=== PATIENT | male | born 1970 | race American Indian/Alaskan Native ===

== ENCOUNTER 2023-12-16 10:09 | Emergency (ER) | payer SELFPAY ==
[~2023-12-16] VITALS: Ht 188 cm; Wt 107.0 kg
[2023-12-16 10:27] VITALS: O2SAT 98
[2023-12-16 11:30] VITALS: BP 126/93; PULSE 70; RESP 16; TEMP 36.83628; O2SAT 99
== END 2023-12-16 11:46 | disposition home or self-care (01) ==
LOC: ER 10:09
DX: Z00.00 Encounter for general adult medical examination without abnormal findings (principal); Z20.1 Contact with and (suspected) exposure to tuberculosis
CPT/HCPCS: 71045; 99283

== ENCOUNTER 2024-07-11 14:03 | Emergency (ER) | payer MEDICAID ==
[~2024-07-11] VITALS: Ht 177.8 cm; Wt 100.0 kg
[2024-07-11 14:09] VITALS: O2SAT 100
[2024-07-11 15:27] LABS: BASOPHILS % 0.3 % (0.0-2.0); CHLORIDE 105 mEq/L (98-107); DIFFERENTIAL COMMENT 0; EOSINOPHILS % 1.5 % (0.0-5.0); HEMATOCRIT. 35.9 % (42.0-52.0); HEMOGLOBIN. 11.7 g/dL (14.0-18.0); LYMPHOCYTES % 16.8 % (20.0-50.0); MEAN CORPUSCULAR HEMOGLOBIN 25.8 pg (28.0-32.0); MEAN CORPUSCULAR HGB CONC 32.4 g/dL (31.0-37.0); MEAN CORPUSCULAR VOLUME 79.6 fL (80.0-94.0); MEAN PLATELET VOLUME 7.6 fl (7.4-10.4); MONOCYTES % 11.5 % (2.0-8.0); NEUTROPHILS % 69.9 % (40.0-76.0); PLATELET 360 x1000/uL (130-400); RED BLOOD CELL COUNT 4.52 mill/uL (4.7-6.1); RED CELL DISTRIBUTION WIDTH 14.1 % (11.6-14.6); SODIUM 141 mEq/L (136-145); WHITE BLOOD COUNT 8.6 x1000/uL (4.5-11.0)
[2024-07-11 15:28] LABS: CALCIUM 9.1 mg/dL (8.7-10.4); CARBON DIOXIDE 28 mEq/L (21-32)
[2024-07-11 15:33] LABS: CREATININE 0.9 mg/dL (0.6-1.3); GLUCOSE 101 mg/dL (70-105); UREA NITROGEN BLOOD 13 mg/dL (9-23)
[2024-07-11 15:41] LABS: ETHANOL BLOOD < 10 mg/dL (<10)
[2024-07-11] MEDS ORDERED: OLANZAPINE 5MG TABLET ODT PO ONE (17:45)
[2024-07-11] MEDS: SULFAMETHOXAZOLE/TRIMETHOPRIM 800/160MG TABLET PO SCH (21:00)
[2024-07-11] MEDS: OLANZAPINE 5MG TABLET ODT PO NR (22:26)
[2024-07-12 01:25] LABS: CLARITY URINE CLEAR (CLEAR); COLOR URINE YELLOW (YELLOW); GLUCOSE URINE NEGATIVE (NEGATIVE); KETONES URINE NEGATIVE (NEGATIVE); LEUKOCYTE ESTERASE URINE NEGATIVE (NEGATIVE); NITRITE URINE NEGATIVE (NEGATIVE); OCCULT BLOOD URINE NEGATIVE (NEGATIVE); PH URINE 6.5 (4.5-8.0); PROTEIN URINE NEGATIVE (NEGATIVE); SPECIFIC GRAVITY URINE 1.019 (1.005-1.030)
[2024-07-12 01:37] LABS: *AMPHETAMINES SCREEN URINE PRESUMPTIVE POSITIVE (NEGATIVE); *BENZODIAZEPINES SCREEN URINE NEGATIVE (NEGATIVE)
[2024-07-12 01:38] LABS: *BARBITURATES SCREEN URINE NEGATIVE (NEGATIVE); *COCAINE SCREEN URINE PRESUMPTIVE POSITIVE (NEGATIVE); METHADONE URINE SCREEN NEGATIVE (NEGATIVE); OPIATES URINE SCREEN NEGATIVE (NEGATIVE); PHENCYCLIDINE URINE SCREEN NEGATIVE (NEGATIVE)
[2024-07-12 01:39] LABS: CANNABINOID URINE SCREEN NEGATIVE (NEGATIVE); ECSTASY MDMA SCREEN URINE NEGATIVE (NEGATIVE)
[2024-07-12 06:00] VITALS: TEMP 37.1
[2024-07-12 08:00] VITALS: BP 158/81; PULSE 88; RESP 16; O2SAT 98
== END 2024-07-12 11:40 | disposition home or self-care (01) ==
LOC: ER 14:03
DX: R45.851 Suicidal ideations (principal); L03.116 Cellulitis of left lower limb; Z72.0 Tobacco use; F25.9 Schizoaffective disorder, unspecified; Z20.822 Contact with and (suspected) exposure to COVID-19
CPT/HCPCS: 36415; 80048; 80305; 80307; 80320; 80329; 81003; 85025; 87426; 99285; G0480